=== PATIENT | male | born 1965 | race Caucasian/White ===

== ENCOUNTER 2016-11-13 10:37 | Day surgery (SDC) | payer OTHER ==
--- NOTE | ~2016-11-13 | EGD ---
EGD REPORT [facility] [address] [address] NAME: CHRIS DANGELO : [birth year] STATUS : REG [facility]#: [id number] AGE: 51 ADM/REG DATE : 11/13/16 MR#: [id number] REPORT SERV DATE: 11/13/16 DICTATED BY: JEREMI TUTTLE DATE: 11/13/16 REPORT STATUS : Draft [facility]ANS[facility]ED BY: [facility] DATE: 11/13/16 [facility] Center Patient Name: Chris Dangelo Date of : 1965 Attending MD: JEREMI TUTTLE, Procedure Date No Time: 11/13/2016 Procedure: Upper EUS Indications: Acute pancreatitis, Epigastric abdominal pain Referring MD: Austin HILLMAN Medicines: Monitored Anesthesia Care Complications: No immediate complications. Estimated blood loss: None. Procedure: Pre-Anesthesia Assessment: - ASA Grade Assessment: III - A patient with severe systemic disease. After obtaining informed consent, the endoscope was passed under direct vision. Throughout the procedure, the patient's blood pressure, pulse, and oxygen saturations were monitored continuously. The Endoscope was introduced through the mouth, and advanced to the second part of duodenum. The GIF [id number] was introduced through the mouth, and advanced to the second part of duodenum. Findings: Endoscopic Finding : The examined esophagus was endoscopically normal. Evidence of a Solis fundoplication was found in the gastric fundus. Patchy moderate inflammation characterized by erosions and erythema was found in the entire examined stomach. Biopsies were taken with a cold forceps for histology. Verification of patient identification for the specimen was done. Estimated blood loss was minimal. The exam of the stomach was otherwise normal. The examined duodenum was endoscopically normal. Endosonographic Finding : There was no sign of significant endosonographic abnormality in the entire pancreas. The pancreas was well visualized, no pathologic lymphadenopathy, no masses, no calcifications, the pancreatic duct was well visualized from ampulla to tail, the pancreatic duct was regular in contour. The pancreatic duct had a normal endosonographic appearance in the entire pancreas. The pancreatic duct measured up to 1 mm in diameter. There was no sign of significant endosonographic abnormality in the common bile duct. No stones were identified. There was no sign of significant endosonographic abnormality in the ampulla. EGD REPORT [place] [address] [place]. [address] NAME: CHRIS DANGELO : [birth year] STATUS : REG [facility] PAT#: [id number] AGE: 51 ADM/REG DATE : 11/13/16 MR#: [id number] REPORT SERV DATE: 11/13/16 DICTATED BY: JEREMI TUTTLE DATE: 11/13/16 REPORT STATUS : Draft TRANSCRIBED BY: [facility] DATE: 11/13/16 There was no sign of significant endosonographic abnormality in the examined duodenum. Endosonographic images of the stomach were unremarkable. There was no sign of significant endosonographic abnormality in the esophagus. Impression: - Normal esophagus. - A Solis fundoplication was found. - Gastritis. Biopsied. - Normal examined duodenum. - There was no sign of significant pathology in the entire pancreas. - The pancreatic duct had a normal endosonographic appearance in the entire pancreas. The pancreatic duct measured up to 1 mm in diameter. - There was no sign of significant pathology in the common bile duct. - There was no sign of significant pathology in the ampulla. - There was no sign of significant pathology in the examined duodenum. - Endosonographic images of the stomach were unremarkable. - There was no sign of significant pathology in the esophagus. Recommendation: - Return to previous diet. - Continue present medications. - Await path results. - Return to referring physician. Procedure Code(s): --- Professional --- 01529, Esophagogastroduodenoscopy, flexible, transoral; with endoscopic ultrasound examination, including the esophagus, stomach, and either the duodenum or a surgically altered stomach where the jejunum is examined distal to the anastomosis Diagnosis Code(s): --- Professional --- Z98.89, Other specified postprocedural states K29.70, Gastritis, unspecified, without bleeding K85.9, Acute pancreatitis, unspecified R10.13, Epigastric pain CPT copyright 2013 [employer]. All rights reserved. EGD REPORT [facility] [address] [place], [place] [address]. [address] NAME: CHRIS DANGELO : [birth year] STATUS : [place] [facility] PAT#: [id number] AGE: 51 ADM/REG DATE : 11/13/16 MR#: [id number] REPORT SERV DATE: 11/13/16 DICTATED BY: JEREMI TUTTLE DATE: 11/13/16 REPORT STATUS : Draft TRANSCRIBED BY: [employer] DATE: 11/13/16 The codes documented in this report are preliminary and upon baggage inspector review may be revised to meet current compliance requirements. JEREMI TUTTLE, 11/13/2016 12:31 PM Number of Addenda: 0 Note Initiated On: 11/13/2016 11:57 AM Scope Withdrawal Time 0 hours 0 minutes [address] [place] [id number]
[~2016-11-13 10:37] MED LIST: AMIT10 PO; ASAB PO; ASABAYER PO; AUBAGIO14 MG PO; HYDROCHLOROT12.5 MG PO; ISOPTINSR PO; LOP25 PO; MIRAPEX250 PO; PCET PO; PRAV10 PO; PROTONIX PO; SYN.15 PO; SYNTHROID200 MCG PO; TUMSROLL PO; VERELAN240 MG PO; WELLXL150 PO
== END 2016-11-13 23:59 | disposition home or self-care (01) ==
LOC: DMU 10:37
PROVIDERS: Internal Medicine Gastroenterology
PROC: 0DB68ZX Excision of Stomach, Via Natural or Artificial Opening Endoscopic, Diagnostic (ICD-10-PCS; 2016-11-13)
PROC: 0DJ08ZZ Inspection of Upper Intestinal Tract, Via Natural or Artificial Opening Endoscopic (ICD-10-PCS; principal; 2016-11-13 12:30)
DX: K29.50 Unspecified chronic gastritis without bleeding (principal); I10 Essential (primary) hypertension; E78.00 Pure hypercholesterolemia, unspecified; E05.00 Thyrotoxicosis with diffuse goiter without thyrotoxic crisis or storm; Z88.5 Allergy status to narcotic agent; Z79.82 Long term (current) use of aspirin; Z86.73 Personal history of transient ischemic attack (TIA), and cerebral infarction without residual deficits; Z79.899 Other long term (current) drug therapy
CPT/HCPCS: 88305; A9270-GY; C1725; J2405